=== PATIENT | male | born 1935 | race Caucasian/White ===

== ENCOUNTER 2017-10-10 05:53 | Day surgery (SDC) | payer MEDICARE ==
[2017-10-10] MEDS ORDERED: NEOSTIGMINE 3 MG/3 ML SYRINGE (06:25)
[2017-10-10] MEDS ORDERED: ROCURONIUM 50 MG INJ (06:25)
[2017-10-10] MEDS ORDERED: GLYCOPYRROLATE 0.4 MG INJ (06:25)
[2017-10-10] MEDS ORDERED: FENTAnyl 50 MCG/ML VIAL (06:25)
[2017-10-10] MEDS ORDERED: MIDAZOLAM 1 MG/ML 2 ML INJ ×2 (06:25→08:39)
[2017-10-10] MEDS ORDERED: PROPOFOL 20 ML (06:25)
[2017-10-10] MEDS ORDERED: DEXAMETHASONE 4 MG/ML 1 ML INJ (06:25)
[2017-10-10] MEDS ORDERED: LIDOCAINE 2% (SDV) 5 ML INJ (06:25)
[2017-10-10] MEDS ORDERED: ONDANSETRON 4 MG INJ (06:26)
[2017-10-10] MEDS: GELATIN SIZE 100 SPONGE (07:53)
[2017-10-10] MEDS: THROMBIN 5000 UNIT VIAL (07:53)
[2017-10-10] MEDS: POLYMYXIN/BACITRACIN 1L IRRIG (07:53)
[2017-10-10] MEDS: BUPIVACAINE 0.25%/EPI (SDV) 30 ML INJ (07:53)
[2017-10-10] MEDS ORDERED: BUPIVACAINE 0.25% (MPF) 30 ML INJ (07:53)
[2017-10-10] MEDS: BETAMET NA PHOS/AC(6 MG/ML) 5ML INJ (09:16)
[2017-10-10] MEDS ORDERED: FLUMAZENIL 0.5 MG INJ (10:02)
[2017-10-10] MEDS ORDERED: INSULIN ASPART [NOVOLOG] 3 ML PEN SC (12:00)
[2017-10-10] MEDS ORDERED: DEXTROSE 50% 50 ML SYRINGE IV ×2 (12:00)
[2017-10-10] MEDS ORDERED: GLUCOSE GEL 15 GRAM TUBE PO ×2 (12:00)
[2017-10-10] MEDS ORDERED: GLUCOSE GEL 15 GRAM TUBE BUCCAL (12:00)
[2017-10-10] MEDS ORDERED: GLUCAGON 1 MG INJ IM (12:00)
[2017-10-10] MEDS ORDERED: NON-FORMULARY/PATIENT OWN MED (Silodosin (Rapaflo) 8 MG) PO (21:00)
[2017-10-11] MEDS ORDERED: NON-FORMULARY/PATIENT OWN MED (Liraglutide (Victoza 3-Pak) 1.8 MG) SQ (09:00)
[2017-10-11] MEDS ORDERED: LISINOPRIL 20 MG TAB PO (09:00)
[2017-10-11] MEDS ORDERED: MIRABEGRON 25 MG PO (09:00)
== END 2017-10-10 15:40 | disposition home or self-care (01) ==
LOC: SUR 05:53 → SDS 05:53 → SUR 15:40
DX: M51.27 Other intervertebral disc displacement, lumbosacral region (principal); I25.10 Atherosclerotic heart disease of native coronary artery without angina pectoris; E11.9 Type 2 diabetes mellitus without complications; J44.9 Chronic obstructive pulmonary disease, unspecified; I10 Essential (primary) hypertension
CPT/HCPCS: 63030; 72100; 82962; 86850; 86900; 86901; 88304; 97161